=== PATIENT | female | born 1970 | race Caucasian/White ===

== ENCOUNTER 2023-03-05 17:00 | Emergency (ER) | payer MEDICAID ==
[2023-03-05 17:21] VITALS: BP 138/72; O2SAT 98
--- NOTE | 2023-03-05 17:34 | ED Physician Documentation ---
PD HPI DYSPNEA - Stated complaint Stated Complaint: WHEEZING/CONGESTION - Chief complaint Chief Complaint: Resp - History obtained from History obtained from: Patient - History of Present Illness Timing - onset: How many weeks ago (3) Timing - onset during: Rest, Light activity Timing - duration: Weeks (3) Timing - details: Gradual onset (The patient has had over 3 weeks of coughing and dyspnea with a feeling of chest tightness on breathing. Initially with sputum and fevers which tapered but has persisted with coughing. Increased symptoms over the last few days again.), Still present Improved by: Rest Worsened by: Exertion, Coughing (She describes coughing spells at times with spasmodic type cough and unable to catch breath. Increase sputum the last few days and is also noted sinus pressure and congestion the last few days.) Associated symptoms: Cough, Wheezing. No: Fever, Hemoptysis, Bilateral edema Similar symptoms before: Has not had sx before Recently seen: Clinic (She had a video conference with her primary care and outpatient chest x-ray that was clear 2 weeks ago. She was prescribed doxycycline and took it for 5 days but had GI upset and discontinued it at the direction of her provider. Did not have improvement.) Review of Systems Constitutional: reports: Myalgias. denies: Fever, Chills Neurologic: reports: Generalized weakness. denies: Near syncope PD PAST MEDICAL HISTORY - Past Medical History Past Medical History: Yes Cardiovascular: None Respiratory: None ENTERTAINER OR VARIETY ARTIST: Uterine cancer - Past Surgical History /ENTERTAINER OR VARIETY ARTIST: Hysterectomy, Oophrectomy HEENT: Rhinoplasty - Present Medications Home Medications: Ambulatory Orders Medication Instructions Recorded Confirmed Albuterol Sulf [Ventolin Hfa 2 - 3 puffs INH QID #1 each 03/05/23 Inhaler] Amoxicillin 500 mg PO TID #20 cap 03/05/23 Letrozole 1.25 mg PO DAILY 03/05/23 03/05/23 dexAMETHasone [Decadron] 4 mg PO DAILY #5 tablet 03/05/23 - Allergies Allergies/Adverse Reactions: Allergies Allergy/AdvReac Type Severity Reaction Status Date / Time meperidine [From Demerol] Allergy Unknown Verified 03/05/23 17:18 doxycycline AdvReac Nausea Verified 03/05/23 17:18 - Social History Does the pt smoke?: No Smoking Status: Never smoker Does the pt drink ETOH?: No Does the pt have substance abuse?: No - Immunizations Immunizations are current?: No PD ED PE NORMAL - Vitals Vital signs reviewed: Yes - General General: Alert and oriented X 3, No acute distress, Well developed/nourished - HEENT HEENT: Ears normal, Pharynx benign - Neck Neck: Supple, no meningeal sign, No adenopathy - Cardiac Cardiac: RRR, No murmur - Respiratory Respiratory: No respiratory distress. No: Clear bilaterally (some congestion sounds left base. Diffuse mild expiroatory wheezing noted.) - Derm Derm: Normal color, Warm and dry - Extremities Extremities: No edema, No calf tenderness / cord Results - Vitals Vitals: Vital Signs - 24 hr 03/05/23 03/05/23 17:09 18:18 Temperature 36.7 C Heart Rate 63 65 Respiratory 16 16 Rate Blood Pressure 138/72 H O2 Saturation 98 Oxygen O2 Source Room air - Rads (name of study) chest xray Relevant Findings:: Prelim report reviewed, EMP independent interpretation of test (no inifltrates nor effusion. ) PD Medical Decision Making - ED course Complexity details: reviewed results (chest xray clear without infiltrates nor effusion.), considered differential (has had cough for 3 weeks with now worsening dyspnea. Has some congested sounds left base concerning for developoing local process/neumonia. Has new sinus pressure/congestion too. cocnering for secondary infection versus another viral. Has cough and wheezing, so can use MDI and steroids to help. ), d/w patient Departure - Departure Disposition: 01 Home, Self Care Clinical Impression: Pulmonary congestion, Bronchitis Condition: Stable Record reviewed to determine appropriate education?: Yes Follow-Up: DEANA FUENTES MD [Primary Care Provider] - Prescriptions: Amoxicillin 500 mg PO TID #20 cap dexAMETHasone [Decadron] 4 mg PO DAILY #5 tablet Albuterol Sulf [Ventolin Hfa Inhaler] 2 - 3 puffs INH QID #1 each Comments: Your chest x-ray is clear Without any signs of pneumonia. Clinically you do have congested sounds in the left base so it may be getting improper aeration because of mucus plugging and wheezing. However that 9plus your sinus symptoms) would be concerning for developing a secondary bacterial infection. For your coughing and breathing, primarily would try to give you improvement with an albuterol inhaler to use 2 to 3 puffs 4 times daily for the next several week fairly regularly and then as needed. Also to help with the wheezing and bronchial inflammation, I would have you use Decadron steroid anti-inflammatory daily for 5 more days. With the concern for a secondary bacterial infection developing, amoxicillin 3 times daily for a week. Stay well-hydrated. You can use [id number] cough medicines or such periodically. In general you would do better to have increased sputum production out. Recheck if not improving well over the next several days and return if worse. I sent your prescription to the [facility] pharmacy in [place] which would be closest to where you are staying. Forms: PCP List Discharge Date/Time: 03/05/23 18:33
[2023-03-05] MEDS ORDERED: ALBUTEROL NEB 2.5 MG/3 ML INH STA (17:58)
[2023-03-05] MEDS ORDERED: dexAMETHasone 4 MG TABLET PO STA (17:58)
[2023-03-05] MEDS ORDERED: AMOXICILLIN 250 MG CAPSULE PO STA (18:07)
--- NOTE | 2023-03-05 18:31 | XRAY Report ---
PROCEDURE: Chest 1 View X-Ray INDICATIONS: cough, left lower congestion TECHNIQUE: One view of the chest was acquired. COMPARISON: None. FINDINGS: Surgical changes and devices: None. Lungs and pleura: No pleural effusions or pneumothorax. Lungs are clear. Mediastinum: Mediastinal contours appear normal. Heart size is normal. Bones and chest wall: No suspicious bony lesions. Overlying soft tissues appear unremarkable. IMPRESSION: No acute cardiopulmonary process. No focal infiltrates are seen. Reviewed by: Bran Bustamante MD on 03/05/2023 5:29 PM AKWILL Approved by: Bran Bustamante MD on 03/05/2023 5:29 PM GERALDO Station ID: [id number]
== END 2023-03-05 18:33 | disposition home or self-care (01) ==
LOC: ED 17:00
DX: J40 Bronchitis, not specified as acute or chronic (principal); R09.89 Other specified symptoms and signs involving the circulatory and respiratory systems; Z79.899 Other long term (current) drug therapy
CPT/HCPCS: 71045; 94640; 94664; 99283; 99284; A9270; J8540